=== PATIENT | male | born 1980 | race Caucasian/White ===

== ENCOUNTER 2019-06-30 14:05 | Emergency (ER) | payer OTHER ==
[2019-06-30] MEDS ORDERED: Bupivacaine 0.5% 30 ML SDV INJECT ONE (14:06)
[2019-06-30] MEDS ORDERED: Diphtheria,Pertussis(Acell),Tetanus Vaccine 0.5 ML SDV IM ONE (14:23)
[2019-06-30] MEDS ORDERED: cefTRIAXone 1 GM Vial IM ONE (14:23)
--- NOTE | 2019-06-30 14:24 | EDM.PDOC ---
ED HPI GENERAL MEDICAL PROBLEM - General Stated Complaint: LACERATION L THUMB Time Seen by Provider: 06/30/19 14:05 Source of Information: Reports: Patient History Limitations: Reports: No Limitations - History of Present Illness INITIAL COMMENTS - FREE TEXT/NARRATIVE: 39 y.o.w.m came to the ed after he injured his left thumb on a table saw at his own home. 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 POt has FROM of his left Thumb, no active bleed. TD is not UTD. Tendon and bone Bone are not exposed, CAP refill < 2 sec. No erythema/rash. No N/V/D no SOB on CP or any other acute med issues. BP 90/48 RR 16 Pulse ox 98% on RA Pulse 62 Temp 36.4 Onset Date: 06/30/19 Onset Time: 13:00 Duration: Hour(s):, Constant, Intermittent Location: Reports: Upper Extremity, Left (thumb) Quality: Reports: Ache, Dull, Pressure Severity: Moderate Improves with: Reports: Rest Worsens with: Reports: Movement Context: Reports: Trauma (left thumb) Associated Symptoms: Reports: No Other Symptoms left side thumb Pain Score (Numeric/FACES): 6 - Related Data Allergies Allergy/AdvReac Type Severity Reaction Status Date / Time No Known Allergies Allergy Verified 06/30/19 14:16 Home Meds: Home Meds Albuterol [Proventil HFA] 2 puff INH Q4H PRN 06/30/19 [History] Cephalexin [Keflex] 500 mg PO Q6HR #40 capsule 06/30/19 [Rx] ED ROS GENERAL - Review of Systems Review Of Systems: See Below Constitutional: Reports: No Symptoms HEENT: Reports: No Symptoms Respiratory: Reports: No Symptoms Cardiovascular: Reports: No Symptoms Endocrine: Reports: No Symptoms GI/Abdominal: Reports: No Symptoms : Reports: No Symptoms Musculoskeletal: Reports: Hand Pain (left thumb pain) Skin: Reports: Wound (left thumb) Neurological: Reports: No Symptoms Psychiatric: Reports: No Symptoms Hematologic/Lymphatic: Reports: No Symptoms Immunologic: Reports: No Symptoms ED EXAM, SKIN/RASH Exam: See Below Exam Limited By: No Limitations General Appearance: Alert, WD/WN, Mild Distress Eye Exam: Bilateral Eye: Normal Inspection Ears: Normal External Exam, Normal Canal, Hearing Grossly Normal Nose: Normal Inspection, Normal Mucosa, No Blood Throat/Mouth: Normal Inspection, Normal Lips, Normal Teeth, Normal Gums, Normal Voice, No Airway Compromise Head: Atraumatic, Normocephalic Neck: Normal Inspection, Supple, Non-Tender, Full Range of Motion Respiratory/Chest: No Respiratory Distress, Lungs Clear, Normal Breath Sounds, Chest Non-Tender Cardiovascular: Normal Peripheral Pulses, Regular Rate, Rhythm Peripheral Pulses: 1+: Brachial (R) GI/Abdominal: Normal Bowel Sounds, Soft, Non-Tender, No Organomegaly (Male) Exam: Deferred Rectal (Males) Exam: Deferred Back Exam: Normal Inspection, Full Range of Motion Extremities: Normal Inspection, Normal Range of Motion, Non-Tender Neurological: Alert, Oriented, CN II-XII Intact Psychiatric: Normal Affect, Normal Mood Location, Skin: Upper Extremity, Right (left thumb) Lymphatic: No Adenopathy ED SKIN PROCEDURES - Laceration/Wound Repair Left Lateral Distal Digit - 1st (Thumb) Lac/Wound length In cm: 3.2 Appearance: Subcutaneous, Stellate, Irregular, Mildly Contaminated Distal NVT: Neuro & Vascular Intact, No Tendon Injury Anesthetic Type: Local Local Anesthesia - Bupivicaine (Marcaine): 0.5% Plain Local Anesthetic Volume: 4cc Skin Prep: Providone-Iodine (Betadine) Saline Irrigation (cc's): 10 Exploration/Debridement/Repair: Wound Explored, In a Bloodless Field, Explored to Base, No Foreign Material Found Suture Size: 3-0 # of Sutures: 8 Suture Type: Interrupted, Other (ethilon) Drain Placement: No Sterile Dressing Applied: Nurse Tetanus Status Addressed: Yes (given today) Complications: No Course - Vital Signs Text/Narrative:: 39 y.o.w.m came to the ed after he injured his left thumb on a table saw at his own home. 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 POt has FROM of his left Thumb, no active bleed. TD is not UTD. Tendon and bone Bone are not exposed, CAP refill < 2 sec. No erythema/rash. No N/V/D no SOB on CP or any other acute med issues. BP 90/48 RR 16 Pulse ox 98% on RA Pulse 62 Temp 36.4 PE: WNWD W M with a left thumb injury Imaging/Labs: Not indicted Procedure not: Please see note above Impression: Left thumb LAC, repaired in the ED Tx: Ankur, TD. Wound care with Neosporin Reexam: Improved Plan: D/C with instructions Last Recorded V/S: Last Vital Signs Temp 36.7 C 06/30/19 14:05 Pulse 66 06/30/19 15:33 Resp 16 06/30/19 15:33 BP 103/70 06/30/19 15:33 Pulse Ox 66 L 06/30/19 15:33 - Orders/Labs/Meds Orders: Active Orders 24 hr Category Date Time Status Vaccines to be Administered [RC] PER UNIT ROUTINE Care 06/30/19 14:23 Active Meds: Medications Discontinued Medications Generic Name Dose Route Start Last Admin Trade Name Freq PRN Reason Stop Dose Admin Ceftriaxone Sodium 1 gm 06/30/19 14:23 06/30/19 14:27 Rocephin IM 06/30/19 14:24 1 gm ONETIME ONE Administration Diphtheria/Tetanus/Acell Pertussis 0.5 ml 06/30/19 14:23 06/30/19 14:27 Adacel IM 06/30/19 14:24 0.5 ml .ONCE ONE Administration Departure - Departure Time of Disposition: 15:20 Disposition: Home, Self-Care 01 Condition: Good Clinical Impression: Laceration - Discharge Information Prescriptions: Cephalexin [Keflex] 500 mg PO Q6HR #40 capsule Instructions: Laceration Care, Adult, [id number], Stitches, Lenore, or Adhesive Wound Closure, [id number] Referrals: Octavio Emery MD [Primary Care Provider] - Forms: ED Department Discharge Additional Instructions: Please apply Neosporin to wound twice daily for 5 days, wound check in 2 days, suture removal in 10-14 days if wound has josé miguel, come back if your symptoms get worse acutely - My Orders Last 24 Hours: My Active Orders 06/30/19 14:23 Vaccines to be Administered [RC] PER UNIT ROUTINE - Assessment/Plan Last 24 Hours: My Active Orders 06/30/19 14:23 Vaccines to be Administered [RC] PER UNIT ROUTINE
== END 2019-06-30 15:38 | disposition home or self-care (01) ==
LOC: FB.ED 14:05
DX: S61.012A Laceration without foreign body of left thumb without damage to nail, initial encounter (principal); Z23 Encounter for immunization; Z79.899 Other long term (current) drug therapy; W31.2XXA Contact with powered woodworking and forming machines, initial encounter; Y92.009 Unspecified place in unspecified non-institutional (private) residence as the place of occurrence of the external cause
CPT/HCPCS: 12002; 90471; 90715; 96372; 99282; 99283; J0696; J3490; 12014